=== PATIENT | female | born 1990 | race Caucasian/White ===

== ENCOUNTER 2016-11-11 10:10 | Emergency (ER) | payer MEDICAID ==
[~2016-11-11] VITALS: Wt 86.5 kg
[2016-11-11] MEDS ORDERED: FAMOTIDINE 20 MG TAB PO STA (11:37)
[2016-11-11] MEDS ORDERED: METO10TA96 PO (11:44)
[2016-11-11] MEDS ORDERED: FAMO-96 PO (11:44)
[2016-11-11 11:56] LABS: URINE BLOOD (Dip) POC Negative (NEGATIVE)
[2016-11-11] MEDS ORDERED: METOCLOPRAMIDE 10 MG TAB PO ONE (12:00)
--- NOTE | 2016-11-11 12:42 | ERD ---
ER Documentation Chief Complaint Date/Time DATE: 11/11/16 TIME: 12:41 Chief Complaint 13 weeks with heartburn since yesterday HPI 26-year-old female who is 13 weeks presents complaining of heartburn since yesterday. Patient admits to nausea but denies any vomiting. She states that this has happened before. Denies taking any medications for this ROS All systems reviewed and are negative except as per history of present illness. Medications Home Meds Active Scripts Metoclopramide Hcl* (Metoclopramide Hcl*) 10 Mg Tablet, 10 MG PO Q6H Y for NAUSEA AND OR VOMITING, #14 TAB Prov:CLEMENTE CHENEY PA-C 11/11/16 Famotidine* (Pepcid*) 20 Mg Tablet, 20 MG PO DAILY, #20 TAB Prov:CLEMENTE CHENEY PA-C 11/11/16 PMhx/Soc Medical and Surgical Hx: pt denies Medical Hx, pt denies Surgical Hx Hx Alcohol Use: No Hx Substance Use: No Hx Tobacco Use: No Smoking Status: Never smoker Physical Exam Vitals Vital Signs Date Time Temp Pulse Resp B/P Pulse Ox O2 Delivery O2 Flow Rate FiO2 11/11/16 10:12 98.1 97 18 118/60 99 Physical Exam Const: [] Head: Atraumatic Eyes: Normal Conjunctiva ENT: Normal External Ears, Nose and Mouth. Neck: Full range of motion..~ No meningismus. Resp: Clear to auscultation bilaterally Cardio: Regular rate and rhythm, no murmurs Abd: Soft, non tender, non distended. Normal bowel sounds Skin: No petechiae or rashes Back: No midline or flank tenderness Ext: No cyanosis, or edema Neur: Awake and alert Psych: Normal Mood and Affect Results 24 hrs Laboratory Tests Test 11/11/16 12:03 Bedside Urine pH (LAB) 6.0 Bedside Urine Protein (LAB) Negative Bedside Urine Glucose (UA) Negative Bedside Urine Ketones (LAB) 2+ Bedside Urine Blood Negative Bedside Urine Nitrite (LAB) Negative Bedside Urine Leukocyte Esterase (L Negative Current Medications Medications (Trade) Dose Ordered Sig/Garett Route PRN Reason Start Time Stop Time Status Last Admin Dose Admin Metoclopramide HCl (Reglan) 10 mg ONCE ONCE PO 11/11/16 12:00 11/11/16 12:01 DC 11/11/16 11:44 Famotidine (Pepcid) 20 mg ONCE STAT PO 11/11/16 11:37 11/11/16 11:39 DC 11/11/16 11:44 Procedures/MDM 26-year-old female who is 13 weeks presents complaining of heartburn since yesterday.It was given Pepcid and Reglan in the ED with improvement. She does not have any evidence of acute abdomen. She stable to be discharged home to follow-up PCP. Departure Diagnosis: Primary Impression: Gastritis Condition: Stable Patient Instructions: Understanding Gastritis, Gastritis (Adult) Additional Instructions: FOLLOW UP WITH YOUR PRIMARY CARE PHYSICIAN TOMORROW.Return to this facility if you are not improving as expected. Take all medicines as directed. Return to this facility if you are not improving as expected. CLEMENTE CHENEY PA-C Nov 11, 2016 12:42
== END 2016-11-11 12:35 | disposition home or self-care (01) ==
LOC: FTE 10:10
DX: O99.611 Diseases of the digestive system complicating pregnancy, first trimester (principal); R12 Heartburn; K29.70 Gastritis, unspecified, without bleeding; Z3A.13 13 weeks gestation of pregnancy
CPT/HCPCS: 81003; 87086; Z7502; Z7610; 99283